=== PATIENT | female | born 1950 | race Caucasian/White ===

== ENCOUNTER → 2019-03-08 | Outpatient (CLI) | payer BC ==
[~2019-03-08] MED LIST: BIOTIN10000 MC1 PO; GABAPENTIN600 M1 PO; LISINOPRIL20 MG PO; NORVASC5 MG PO; PRAVASTATIN SOD10 MG PO; PREMARIN0.625 MG PO; PROZAC20 MG PO; VITAMIN E400 UNIT PO; VITAMINC500 PO; ZANAFLEX4 MG PO; ZOLPIDEM TARTRA10 MG PO
--- NOTE | 2019-03-08 16:43 | CARDNUC ---
[place] [address] CARDIAC NUCLEAR IMAGING REPORT Name: DEEPAK HOWELL Room: [facility]#: [id number] Admission: 03/08/19 Attend Phys: Jeevan Scanlon, Discharge: Date of : 46 Date of Service: 03/08/19 1642 Report #: [id number] THIS REPORT FOR: //name// APPROVED REPORT Study performed: 03/08/2019 12:30:00 Indication: Chest pain, Fatigue, Palpitations. Patient Location: Out-Patient Stress Tech: Kaykay Lester Stress Nurse: Lucretia Irby RN Ht: 5 ft 4 in Wt: 168 lbs BSA: 1.82 m2 BMI: 28.83 Medical History Medical History: Angina, Arrhythmia, Fatigue, HTN, Hyperlipidemia, Weakness. Medications: Amlodipine, Lisinopril. Allergies: Atorvastatin, Azithromycin, Cymbalta, Gabapentin, Lyrica, Savella. Cardiac Risk Factors: Age, FHX of CAD, HTN, Hyperlipidemia. Previous Cardiac Procedures: None Pretest Chest Pain Characteristics: No chest pain Exercise History: Indeterminate Physical Disabilities: Painful/weak knees. Meds Held (24 hrs): None Resting Data Rest SPECT myocardial perfusion imaging was performed in supine position 30 minutes following the intravenous injection of 11.0 mCi of Tc-99m Sestamibi. Time of rest injection: 13:05 The images were gated to evaluate regional wall motion and calculate left ventricular ejection fraction. Administration Route: IV Administration Site: Right AC Pharmacologic Stress Pharmacologic stress test was performed by injecting Regadenoson 0.4 mg IV push over 10-15 seconds immediately followed by the intravenous injection of 32.7 mCi of Tc-99m Sestamibi. Time of stress injection: 14:55 Heart Rate at time of stress injection: 106 bpm. Gated Stress SPECT was performed 40 minutes [place] [address] CARDIAC NUCLEAR IMAGING REPORT Name: DANTEDEEPAKNORBERTO GARCIA Room: [facility]#: [id number] Admission: 03/08/19 Attend Phys: Jeevan Scanlon, Discharge: Date of : 46 Date of Service: 03/08/19 1642 Report #: [id number] injection. The images were gated to evaluate regional wall motion and calculate left ventricular ejection fraction. Prone imaging was performed. Stress Test Details Stress Test: Pharmacologic stress testing performed using 0.4 mg of regadenoson per 5 mL given IV over 10 seconds. Reason for pharmacologic stress test: Painful/weak knees.. HR Max Heart Rate (APMHR): 150 bpm Resting HR: 64 bpm Target HR (85% APMHR): 127 bpm Max HR Achieved: 106 bpm % of APMHR: 70 Recovery HR: 82 bpm BP Resting BP: 149/82 mmHg Max BP: 156/79 mmHg Recovery BP: 147/78 mmHg ECG Resting ECG: Sinus Rhythm Stress ECG: Sinus Tachycardia ST Change: None Arrhythmia: VPC's Recovery ECG: Sinus Rhythm Recovery ST Change: None Recovery Arrhythmia: VPC Clinical Reason for Termination: Completed protocol Stress Symptoms: Tired, Weakness, Dyspnea, Fatigue, Headache, Tightness in neck. Exercise duration: 0 min 0 sec Exercise capacity: 1.00 METs The patient had no significant cardiac symptoms with Lexiscan infusion. Nurse Comments 68 year old female presented with recent HX of increased fatigue, palpitations and chest discomfort. Patient reported having bad knees keeping her from walking too much r/t pain. Patient tolerated sitting Lexiscan with minimal side effects which resolved during recovery with PO caffeine. Patient was escorted by staff to Nuclear Medicine for images. Patient was stable with no complaints [place] [address] CARDIAC NUCLEAR IMAGING REPORT Name: DEEPAK HOWELL Room: [facility]#: [id number] Admission: 03/08/19 Attend Phys: Jeevan Scanlon, Discharge: Date of : 46 Date of Service: 03/08/19 1642 Report #: [id number] Stress ECG Conclusion The baseline 12-lead EKG showed sinus rhythm with unifocal premature ventricular contractions. EKGs obtained during and post Lexiscan infusion show sinus rhythm and sinus tachycardia with unifocal premature ventricular contractions. No significant ST or T-wave abnormalities were noted. There were no other significant stress-induced arrhythmias. Study Quality Study: Good Artifact: No artifact Study Data At rest, the left ventricular ejection fraction was 84%.. Post stress, the left ventricular ejection was 83%.. TID = 0.90. Perfusion Normal left ventricular perfusion. Wall Motion Normal left ventricular wall motion. Nuclear Conclusion ECG Findings: negative for ischemia Clinical Findings: negative for ischemia Nuclear Findings: negative for ischemia Exercise Capacity: not assessed Left Ventricular Function: normal Risk Study: low Myocardial perfusion images show no defect to suggest infarct or ischemia. Left ventricular systolic function appears normal on gated studies. This is a low risk study. <Conclusion> The baseline 12-lead EKG showed sinus rhythm with unifocal premature ventricular contractions. EKGs obtained during and post Lexiscan infusion show sinus rhythm and sinus tachycardia with unifocal premature ventricular contractions. No significant ST or T-wave abnormalities were noted. There were no other significant stress-induced arrhythmias. <ELECTRONICALLY SIGNED> By: Hemant Chambers MD, FACC 03/08/191641 41 41 Hemant Chambers MD, FACC /INF
== END ==
LOC: M.NUC 02-19 09:01
DX: R07.89 Other chest pain (principal); I10 Essential (primary) hypertension; Z88.8 Allergy status to other drugs, medicaments and biological substances; Z88.1 Allergy status to other antibiotic agents; E78.5 Hyperlipidemia, unspecified; Z79.899 Other long term (current) drug therapy; Z82.49 Family history of ischemic heart disease and other diseases of the circulatory system

== ENCOUNTER 2019-11-11 16:24 | Emergency (ER) | payer BC ==
[~2019-11-11] VITALS: Ht 162.6 cm; Wt 75.3 kg
[2019-11-11] MEDS ORDERED: VITAMIN E1000 UNIT PO (17:17)
[2019-11-11 18:30] LABS: URINE BILIRUBIN NEGATIVE (Negative); URINE BLOOD NEGATIVE (Negative); URINE CLARITY CLEAR; URINE COLOR YELLOW; URINE GLUCOSE-RANDOM NEGATIVE (Negative); URINE KETONES NEGATIVE (Negative); URINE LEUKOCYTES-REFLEX TRACE (Negative); URINE NITRITE-REFLEX NEGATIVE (Negative); URINE PROTEIN NEGATIVE (Negative); URINE SPECIFIC GRAVITY <= 1.005 (1.005-1.030); URINE UROBILINOGEN 0.2 E.U./dl (0.2-1.0)
[2019-11-11 18:42] LABS: SQUAMOUS 4-10 Moderate /LPF (0-3)
[2019-11-11 18:43] LABS: BACTERIA-REFLEX 1-9 Few /HPF (None Seen); CASTS None Seen /LPF (None Seen); CRYSTALS None Seen /LPF (None Seen); MUCUS None Seen strn/LPF (None Seen); URINE RBC None Seen /HPF (0-2); URINE WBC-REFLEX 0-5 Rare /HPF (0-5)
[2019-11-11 19:06] LABS: ABSOLUTE EOSINOPHILS 0.3 thou/uL (0.0-0.7); ABSOLUTE LYMPHOCYTES 1.9 thou/uL (0.8-5.3); ABSOLUTE MONOCYTES 0.4 thou/uL (0.0-1.2); ABSOLUTE NEUTROPHILS 2.3 thou/uL (1.6-8.1); BASOPHILS 0.8 %; EOSINOPHILS 5.1 %; HEMATOCRIT 40.9 % (37.0-47.0); HEMOGLOBIN 13.6 gm/dL (12.0-15.0); LYMPHOCYTES 38.5 %; MCH 30.9 pg (26.0-34.0); MCHC 33.2 g/dL (28.0-37.0); MCV 93.1 fL (80.0-100.0); MONOCYTES 8.2 %; MPV 8.9 fl. (7.2-11.1); NUCLEATED RBCS 0 /100WBC; PLATELET COUNT* 242 thou/uL (150-400); POLYS 47.4 %; RBC 4.39 mil/uL (4.20-5.00); RDW-CV 13.7 % (10.5-14.5); WBC 4.9 thou/uL (4.0-11.0)
[2019-11-11 19:20] LABS: CALCIUM 9.7 mg/dL (8.5-10.1); CREATININE 1.8 mg/dL (0.6-1.3); POTASSIUM 4.6 mmol/L (3.5-5.1)
[2019-11-11 19:24] LABS: ALBUMIN 3.6 g/dL (3.4-5.0); TOTAL BILIRUBIN 0.4 mg/dL (<0.1-1.0)
[2019-11-11 20:23] VITALS: BP 153/92
== END 2019-11-11 20:24 | disposition home or self-care (01) ==
LOC: M.ERS 16:24
PROVIDERS: Nurse Practitioner Family
DX: K59.01 Slow transit constipation (principal); M79.7 Fibromyalgia; M19.90 Unspecified osteoarthritis, unspecified site; I10 Essential (primary) hypertension; Z90.710 Acquired absence of both cervix and uterus; Z85.528 Personal history of other malignant neoplasm of kidney; Z85.51 Personal history of malignant neoplasm of bladder

== ENCOUNTER 2020-06-05 14:41 | Emergency (ER) | payer BC ==
[~2020-06-05] VITALS: Ht 162.6 cm; Wt 73.5 kg
[~2020-06-05 14:41] MED LIST changes: +VITAMIN E1000 UNIT PO
[2020-06-05 15:22] LABS: ABSOLUTE BASOPHILS 0.1 thou/uL (0.0-0.2); ABSOLUTE EOSINOPHILS 0.4 thou/uL (0.0-0.7); ABSOLUTE LYMPHOCYTES 1.8 thou/uL (0.8-5.3); ABSOLUTE MONOCYTES 0.3 thou/uL (0.0-1.2); ABSOLUTE NEUTROPHILS 2.5 thou/uL (1.6-8.1); BASOPHILS 1.1 %; HEMATOCRIT 40.2 % (37.0-47.0); HEMOGLOBIN 13.5 gm/dL (12.0-15.0); LYMPHOCYTES 34.7 %; MCH 32.2 pg (26.0-34.0); MCHC 33.7 g/dL (28.0-37.0); MCV 95.4 fL (80.0-100.0); MONOCYTES 6.6 %; MPV 8.5 fl. (7.2-11.1); NUCLEATED RBCS 0 /100WBC; PLATELET COUNT* 206 thou/uL (150-400); POLYS 49.6 %; RBC 4.21 mil/uL (4.20-5.00); RDW-CV 13.4 % (10.5-14.5); WBC 5.1 thou/uL (4.0-11.0)
[2020-06-05 15:33] LABS: CALCIUM 9.1 mg/dL (8.5-10.1); POTASSIUM 4.6 mmol/L (3.5-5.1)
[2020-06-05 15:38] LABS: ALBUMIN 3.3 g/dL (3.4-5.0); TOTAL BILIRUBIN 0.3 mg/dL (<0.1-1.0); TOTAL PROTEIN 6.8 g/dL (6.4-8.2)
[2020-06-05] MEDS ORDERED: TYLENOL WITH CO1 TA1 PO (16:55)
[2020-06-05 17:04] VITALS: BP 179/76
== END 2020-06-05 17:05 | disposition home or self-care (01) ==
LOC: M.ERS 14:41
PROVIDERS: Physician Assistant
DX: M79.662 Pain in left lower leg (principal); I10 Essential (primary) hypertension; M79.7 Fibromyalgia; M19.90 Unspecified osteoarthritis, unspecified site; Z90.710 Acquired absence of both cervix and uterus; Z85.51 Personal history of malignant neoplasm of bladder; Z85.528 Personal history of other malignant neoplasm of kidney; Z90.5 Acquired absence of kidney